=== PATIENT | male | born 1980 | race Caucasian/White ===

== ENCOUNTER 2021-09-30 13:36 | Emergency (ER) | payer OTHER ==
[~2021-09-30] VITALS: Ht 180.3 cm; Wt 93.9 kg
[~2021-09-30 13:36] MED LIST: LIDOCAINE1 EAC1 TOP; METPRE4DP PO; Pepcid20 MG PO; Robaxin750 MG PO; TRAZ100 PO; TRAZ50 PO
[2021-09-30] MEDS ORDERED: Robaxin750 MG PO (14:23)
[2021-09-30] MEDS ORDERED: IBUP800 PO (14:23)
== END 2021-09-30 14:37 | disposition home or self-care (01) ==
LOC: ER 13:36
DX: M54.41 Lumbago with sciatica, right side (principal)
CPT/HCPCS: A9270; J1885

== ENCOUNTER → 2022-07-31 | Outpatient (CLI) | payer OTHER ==
[~2022-07-31] MED LIST changes: +IBUP800 PO
[2022-07-31 18:08] LABS: Anion Gap 4 mmol/L (6-16); Blood Urea Nitrogen 16 mg/dL (8-24); CHOL/HDL RATIO 2.1; CO2, Blood 24 mmol/L (21-32); Calcium, Blood 9.2 mg/dL (8.5-10.1); Chloride, Blood 110 mmol/L (98-108); Cholesterol 184 mg/dL (50-200); Creatinine, Blood 1.14 mg/dL (0.60-1.20); Glomerular Filtration Rate 82 (60-); Glucose, Blood 111 mg/dL (70-99); HDL Cholesterol 89 mg/dL (>39); Low Density Lipoprotein Chol 87 mg/dL (0-110); Potassium, Blood 4.8 mmol/L (3.5-5.5); Sodium, Blood 138 mmol/L (136-145); Triglycerides 42 mg/dL (30-160); Very Low Density Lipoprot Chol 8 mg/dL (6-32)
== END | disposition home or self-care (01) ==
LOC: LAB SHORT 16:28 → LAB 16:28
PROVIDERS: Family Medicine
DX: S39.012A Strain of muscle, fascia and tendon of lower back, initial encounter (principal); E78.00 Pure hypercholesterolemia, unspecified
CPT/HCPCS: 80048; 80061

== ENCOUNTER 2022-11-03 13:39 | Emergency (ER) | payer OTHER ==
[~2022-11-03] VITALS: Ht 180.3 cm; Wt 90.7 kg
[2022-11-03 13:41] VITALS: BP 176/99
[2022-11-03] MEDS ORDERED: CYCL10 PO (16:43)
[2022-11-03] MEDS ORDERED: LIDO700A20 TOP (16:43)
== END 2022-11-03 17:08 | disposition home or self-care (01) ==
LOC: ER 13:39
DX: M54.50 Low back pain, unspecified (principal); G89.29 Other chronic pain
CPT/HCPCS: 96372; 99283-25; A9270; J1885

== ENCOUNTER → 2024-05-30 | Outpatient (CLI) | payer OTHER ==
[~2024-05-30] MED LIST changes: +CYCL10 PO; +LIDO700A20 TOP
[2024-05-30 17:21] LABS: BASOPHILS ABSOLUTE AUTO 0.03 K/mm3 (0.00-0.23); BASOPHILS PERCENT AUTO 1 % (0-2); EOSINOPHILS ABSOLUTE AUTO 0.16 K/mm3 (0.00-0.68); EOSINOPHILS PERCENT AUTO 3 % (0-6); Hematocrit 44.7 % (37.0-53.0); IMMATURE GRAN ABSOLUTE AUTO 0.01 K/mm3 (0.00-0.10); IMMATURE GRAN PERCENT AUTO 0 % (0-1); LYMPHOCYTES ABSOLUTE AUTO 1.36 K/mm3 (0.84-5.20); LYMPHOCYTES PERCENT AUTO 27 % (21-46); MONOCYTES ABSOLUTE AUTO 0.64 K/mm3 (0.16-1.47); MONOCYTES PERCENT AUTO 13 % (4-13); Mean Corpuscular HGB 33.3 pg (26.0-34.0); Mean Corpuscular HGB Conc 35.8 g/dL (31.5-36.5); Mean Corpuscular Volume 93 fL (80-100); Mean Platelet Volume 10.5 fL (9.1-12.4); NEUTROPHILS ABSOLUTE AUTO 2.94 K/mm3 (1.96-9.15); NEUTROPHILS PERCENT AUTO 57 % (41-73); Platelet Count 279 K/mm3 (150-400); RDW Coefficient Variation 12.9 % (11.7-14.2); RDW Standard Deviation 43.8 fL (35.1-46.3); Red Blood Cell Count 4.81 M/mm3 (4.30-5.90); White Blood Cell Count 5.14 K/mm3 (4.00-11.30)
[2024-05-30 19:14] LABS: Alanine Aminotransfer (ALT/SGP 38 U/L (12-78); Albumin/Globulin Ratio 1.1 (0.8-1.8); Alk Phos 72 U/L (50-136); Anion Gap 9 mmol/L (3-11); Aspartate Aminotrans (AST/SGOT 25 U/L (12-37); Bilirubin, Total 1.2 mg/dL (0.1-1.0); Blood Urea Nitrogen 11 mg/dL (8-24); CHOL/HDL RATIO 1.6; CO2, Blood 25 mmol/L (21-32); Calcium, Blood 9.1 mg/dL (8.5-10.1); Chloride, Blood 106 mmol/L (98-108); Cholesterol 157 mg/dL (50-200); Globulin, Blood 3.5 g/dL (2.2-4.0); Glucose, Blood 109 mg/dL (70-99); HDL Cholesterol 101 mg/dL (>39); LDL/HDL RATIO 0.5; Low Density Lipoprotein Chol 47 mg/dL (0-110); Potassium, Blood 4.3 mmol/L (3.5-5.5); Sodium, Blood 136 mmol/L (136-145); Total Protein, Blood 7.5 g/dL (6.4-8.2); Triglycerides 43 mg/dL (30-160); Very Low Density Lipoprot Chol 8 mg/dL (6-32)
[2024-05-30 19:27] LABS: Bun/Creatinine Ratio 9.7 (12.0-20.0); Creatinine, Blood 1.13 mg/dL (0.60-1.20); Glomerular Filtration Rate 82 (60-); Thyroid Stimulating Hormone 0.805 uIU/mL (0.360-4.800)
== END | disposition home or self-care (01) ==
LOC: LAB 15:47 → LAB SHORT 15:47
PROVIDERS: Family Medicine
DX: Z13.6 Encounter for screening for cardiovascular disorders (principal); R03.0 Elevated blood-pressure reading, without diagnosis of hypertension
CPT/HCPCS: 80053; 80061; 84443; 85025